=== PATIENT | female | born 1980 | race Caucasian/White ===

== ENCOUNTER 2017-03-05 17:27 | Inpatient (IN) | payer MEDICAID ==
[~2017-03-05] VITALS: Ht 152.4 cm; Wt 93.4 kg
[2017-03-05 19:03] LABS: BASOPHIL % 0.5 % (0-2); PLATELET COUNT 262 x10^3mcL (130-400); RED CELL DISTRIBUTION WIDTH 13.5 % (11.5-14.5)
[2017-03-05 19:24] LABS: CALCIUM 9.1 mg/dL (8.5-10.1); CARBON DIOXIDE 25.2 mmol/L (21-32); CHLORIDE SERUM 102 mmol/L (98-107); CREATININE SERUM 0.7 mg/dL (0.6-1.0); GFR1 > 60 mL/min; GLUCOSE SERUM 96 mg/dL (74-106); POTASSIUM SERUM 3.7 mmol/L (3.5-5.1); SODIUM SERUM 137 mmol/L (136-145)
[2017-03-05 19:28] LABS: ALBUMIN 4.1 g/dL (3.4-5.0); ALKALINE PHOSPHATASE 89 U/L (46-116); ALT/SGPT 153 U/L (14-59); AST/SGOT 123 U/L (15-37); BILIRUBIN TOTAL 0.6 mg/dL (0.20-1.00); LIPASE 150 IU/L (73-393); TOTAL PROTEIN, SERUM 8.1 g/dL (6.4-8.2)
[2017-03-05 20:19] LABS: UA SPECIFIC GRAVITY 1.015 (1.005-1.035); microscopic required? YES; urine erythrocyte TRACE (NEGATIVE)
[2017-03-05] MEDS ORDERED: GOOD SENSE OMEP20 MG PO (20:47)
[2017-03-05] MEDS ORDERED: TUMS REGULAR S500 MG CH (20:48)
[2017-03-05 21:57] VITALS: BP 128/71
[2017-03-05 22:11] LABS: AMPHETAMINE QUAL UR NONE DETECTED (NEG <=1000)
[2017-03-05 22:14] LABS: T3 TOTAL 1.41 ng/mL
[2017-03-05 22:25] LABS: FREE T4 0.93 ng/dL (0.76-1.46); FREE THYROXINE INDEX 2.9 ug/dL (1.4-4.5); T4(THYROXINE) 9.4 ug/dL (4.7-13.3)
[2017-03-06 05:32] VITALS: BP 132/69
[2017-03-06 07:14] LABS: BASOPHIL % 0.5 % (0-2); PLATELET COUNT 210 x10^3mcL (130-400); RED CELL DISTRIBUTION WIDTH 13.4 % (11.5-14.5)
[2017-03-06 08:00] LABS: CALCIUM 8.1 mg/dL (8.5-10.1); CARBON DIOXIDE 26.4 mmol/L (21-32); CHLORIDE SERUM 107 mmol/L (98-107); CHOLESTEROL 151 mg/dL (<200); CHOLESTEROL/HDL RATIO 3.9; CREATININE SERUM 0.7 mg/dL (0.6-1.0); GFR1 > 60 mL/min; GLUCOSE SERUM 100 mg/dL (74-106); HDL CHOLESTEROL 39 mg/dL (40-60); MAGNESIUM 1.7 mg/dL (1.8-2.4); PHOSPHOROUS 3.7 mg/dL (2.5-4.9); POTASSIUM SERUM 3.8 mmol/L (3.5-5.1); SODIUM SERUM 138 mmol/L (136-145); TRIGLYCERIDES 193 mg/dL (<150)
[2017-03-06 09:31] VITALS: BP 111/67
== END 2017-03-06 12:50 | disposition left against medical advice (07) ==
LOC: ED 17:27 → DU 21:01
PROVIDERS: Emergency Medicine; Family Medicine; ADMIT Family Medicine
DX: K80.00 Calculus of gallbladder with acute cholecystitis without obstruction (principal); K76.0 Fatty (change of) liver, not elsewhere classified; Z68.41 Body mass index [BMI] 40.0-44.9, adult; E28.2 Polycystic ovarian syndrome; B37.49 Other urogenital candidiasis; F12.10 Cannabis abuse, uncomplicated; L94.9 Localized connective tissue disorder, unspecified; K21.9 Gastro-esophageal reflux disease without esophagitis; E66.9 Obesity, unspecified; Z53.29 Procedure and treatment not carried out because of patient's decision for other reasons
CPT/HCPCS: 84439; J0290; J0295; J1885; J2405; J3490; J7030; Q0092

== ENCOUNTER 2017-03-06 18:38 | Inpatient (IN) | payer MEDICAID ==
[~2017-03-06] VITALS: Ht 152.4 cm; Wt 90.4 kg
[~2017-03-06 18:38] MED LIST: GOOD SENSE OMEP20 MG PO; TUMS REGULAR S500 MG CH
[2017-03-06 20:16] LABS: BASOPHIL % 1.1 % (0-2); PLATELET COUNT 236 x10^3mcL (130-400); RED CELL DISTRIBUTION WIDTH 13.5 % (11.5-14.5)
[2017-03-06 20:25] LABS: CALCIUM 8.5 mg/dL (8.5-10.1); CARBON DIOXIDE 26.1 mmol/L (21-32); CHLORIDE SERUM 105 mmol/L (98-107); CREATININE SERUM 0.8 mg/dL (0.6-1.0); GFR1 > 60 mL/min; GLUCOSE SERUM 86 mg/dL (74-106); POTASSIUM SERUM 3.5 mmol/L (3.5-5.1); SODIUM SERUM 137 mmol/L (136-145)
[2017-03-06 20:29] LABS: ALBUMIN 3.9 g/dL (3.4-5.0); ALKALINE PHOSPHATASE 83 U/L (46-116); ALT/SGPT 226 U/L (14-59); AMYLASE 42 U/L (25-115); AST/SGOT 120 U/L (15-37); BILIRUBIN TOTAL 1.1 mg/dL (0.20-1.00); LIPASE 146 IU/L (73-393); TOTAL PROTEIN, SERUM 7.7 g/dL (6.4-8.2)
[2017-03-06 21:56] VITALS: BP 148/81
[2017-03-07 05:25] VITALS: BP 100/60
[2017-03-07 06:41] LABS: CALCIUM 8.1 mg/dL (8.5-10.1); CARBON DIOXIDE 25.2 mmol/L (21-32); CHLORIDE SERUM 106 mmol/L (98-107); CREATININE SERUM 0.6 mg/dL (0.6-1.0); GFR1 > 60 mL/min; GLUCOSE SERUM 95 mg/dL (74-106); MAGNESIUM 2.3 mg/dL (1.8-2.4); PHOSPHOROUS 3.4 mg/dL (2.5-4.9); POTASSIUM SERUM 3.4 mmol/L (3.5-5.1); SODIUM SERUM 138 mmol/L (136-145)
[2017-03-07 07:06] LABS: BASOPHIL % 0.4 % (0-2); PLATELET COUNT 204 x10^3mcL (130-400); RED CELL DISTRIBUTION WIDTH 13.3 % (11.5-14.5)
[2017-03-07 14:51] VITALS: BP 119/62
[2017-03-07 17:35] VITALS: BP 109/60
[2017-03-07 22:16] VITALS: BP 115/65
[2017-03-08 05:53] VITALS: BP 123/71
[2017-03-08 06:52] LABS: BASOPHIL % 0.2 % (0-2); PLATELET COUNT 225 x10^3mcL (130-400); RED CELL DISTRIBUTION WIDTH 13.2 % (11.5-14.5)
[2017-03-08 07:18] LABS: ALBUMIN 3.5 g/dL (3.4-5.0); ALKALINE PHOSPHATASE 68 U/L (46-116); ALT/SGPT 178 U/L (14-59); AST/SGOT 72 U/L (15-37); BILIRUBIN TOTAL 0.4 mg/dL (0.20-1.00); CALCIUM 8.5 mg/dL (8.5-10.1); CARBON DIOXIDE 27.7 mmol/L (21-32); CHLORIDE SERUM 104 mmol/L (98-107); CREATININE SERUM 0.7 mg/dL (0.6-1.0); GFR1 > 60 mL/min; GLUCOSE SERUM 129 mg/dL (74-106); POTASSIUM SERUM 3.9 mmol/L (3.5-5.1); SODIUM SERUM 137 mmol/L (136-145); TOTAL PROTEIN, SERUM 7.1 g/dL (6.4-8.2)
[2017-03-08 09:55] VITALS: BP 103/57
[2017-03-08 18:30] VITALS: BP 110/60
[2017-03-08 21:51] VITALS: BP 120/53
[2017-03-09 05:24] VITALS: BP 110/53
[2017-03-09 10:06] VITALS: BP 117/73
[2017-03-09 13:39] VITALS: BP 115/76
[2017-03-09] MEDS ORDERED: APAP/HYDROCODON1 T13 PO (14:01)
[2017-03-09] MEDS ORDERED: LAC PO (14:01)
[2017-03-09] MEDS ORDERED: COL100 PO (14:01)
[2017-03-09 15:04] VITALS: BP 115/76
== END 2017-03-09 15:35 | disposition home or self-care (01) | DRG 263 ==
LOC: ED 18:38 → MU 20:46 → DU 20:46 → MU 03-07 12:20
PROVIDERS: Emergency Medicine; Surgery; ADMIT Family Medicine
PROC: 0FT44ZZ Resection of Gallbladder, Percutaneous Endoscopic Approach (ICD-10-PCS; principal; 2017-03-06)
DX: K80.00 Calculus of gallbladder with acute cholecystitis without obstruction (principal); K76.0 Fatty (change of) liver, not elsewhere classified; M35.1 Other overlap syndromes; E83.51 Hypocalcemia; Z68.41 Body mass index [BMI] 40.0-44.9, adult; B37.49 Other urogenital candidiasis; E87.6 Hypokalemia; K21.9 Gastro-esophageal reflux disease without esophagitis; E78.5 Hyperlipidemia, unspecified
CPT/HCPCS: 83880; 94150; J0290; J0295; J0330; J1170; J2250; J2405; J2704; J3010; J3475; J3490; J7030; J7120

== ENCOUNTER 2017-06-12 12:52 | Emergency (ER) | payer MEDICAID ==
[~2017-06-12 12:52] MED LIST changes: +APAP/HYDROCODON1 T13 PO; +COL100 PO; +LAC PO
[2017-06-12 12:56] VITALS: BP 149/92
== END 2017-06-12 15:29 | disposition home or self-care (01) ==
LOC: ED 12:52
DX: L03.311 Cellulitis of abdominal wall (principal); E66.9 Obesity, unspecified
CPT/HCPCS: 82962; J0690

== ENCOUNTER 2018-06-14 18:46 | Emergency (ER) | payer MEDICAID ==
[~2018-06-14] VITALS: Ht 152.4 cm; Wt 108.4 kg
[2018-06-14 20:58] LABS: BASOPHIL % 0.4 % (0-2); PLATELET COUNT 242 x10^3mcL (130-400); RED CELL DISTRIBUTION WIDTH 13.1 % (11.5-14.5)
[2018-06-14 21:08] LABS: CARBON DIOXIDE 31.4 mmol/L (21-32); CHLORIDE SERUM 100 mmol/L (98-107); CREATININE SERUM 0.7 mg/dL (0.6-1.0); GFR1 > 60 mL/min; GLUCOSE SERUM 106 mg/dL (74-106); POTASSIUM SERUM 3.8 mmol/L (3.5-5.1); SODIUM SERUM 138 mmol/L (136-145)
[2018-06-14 21:21] LABS: ALBUMIN 3.7 g/dL (3.4-5.0); ALKALINE PHOSPHATASE 83 U/L (46-116); ALT/SGPT 100 U/L (14-59); AST/SGOT 64 U/L (15-37); BILIRUBIN TOTAL 0.33 mg/dL (0.20-1.00); LIPASE 178 IU/L (73-393); TOTAL PROTEIN, SERUM 7.9 g/dL (6.4-8.2)
[2018-06-14 21:41] LABS: microscopic required? NO
[2018-06-14 21:51] LABS: UA SPECIFIC GRAVITY <=1.005 (1.005-1.035); urine erythrocyte NEGATIVE (NEGATIVE)
[2018-06-14 21:57] LABS: AMPHETAMINE QUAL UR NONE DETECTED (See below)
[2018-06-15 00:59] VITALS: BP 140/90
== END 2018-06-15 00:59 | disposition home or self-care (01) ==
LOC: ED 18:46
PROVIDERS: Emergency Medicine
DX: R07.2 Precordial pain (principal); R42 Dizziness and giddiness; R03.0 Elevated blood-pressure reading, without diagnosis of hypertension; Z98.890 Other specified postprocedural states
CPT/HCPCS: 36415; 83880; 84439; 85378; Q0092